=== PATIENT | female | born 1945 | race African-American/Black ===

== ENCOUNTER 2019-08-24 22:58 | Emergency (ER) | payer MEDICARE, OTHER ==
[~2019-08-24] VITALS: Ht 157.5 cm; Wt 79.0 kg
[~2019-08-24 22:58] MED LIST: CATAPRES; METF500T3; TOPXL5
[2019-08-24] MEDS ORDERED: KETOROLAC 60MG/2ML VIAL IM ONE (23:45)
[2019-08-25 02:44] LABS: CLARITY URINE CLEAR (CLEAR); COLOR URINE YELLOW (YELLOW); KETONES URINE TRACE (NEGATIVE); LEUKOCYTE ESTERASE URINE 1+ (NEGATIVE); NITRITE URINE NEGATIVE (NEGATIVE); OCCULT BLOOD URINE NEGATIVE (NEGATIVE); PROTEIN URINE 2+ (NEGATIVE); SPECIFIC GRAVITY URINE 1.012 (1.005-1.030); UROBILINOGEN URINE 0.2 E.U./dL (0.2-1.0)
[2019-08-25] MEDS ORDERED: LORAZEPAM 0.5MG TABLET PO ONE (03:15)
[2019-08-25 03:25] LABS: BASOPHILS % 1.2 % (0.0-2.0); EOSINOPHILS % 2.1 % (0.0-5.0); HEMATOCRIT. 40.3 % (36.0-48.0); HEMOGLOBIN. 13.8 g/dL (12.0-16.0); LYMPHOCYTES % 29.2 % (20.0-50.0); MEAN CORPUSCULAR HEMOGLOBIN 30.5 pg (28.0-32.0); MEAN CORPUSCULAR VOLUME 89.3 fL (81.0-99.0); MEAN PLATELET VOLUME 9.1 fl (7.4-10.4); MONOCYTES % 6.2 % (2.0-8.0); NEUTROPHILS % 61.3 % (40.0-76.0); PLATELET 225 x1000/uL (130-400); RED BLOOD CELL COUNT 4.52 mill/uL (4.2-5.4); RED CELL DISTRIBUTION WIDTH 13.8 % (11.6-14.6)
[2019-08-25 03:27] LABS: CHLORIDE 106 mEq/L (98-107)
[2019-08-25 03:59] VITALS: BP 137/71
== END 2019-08-25 06:27 | disposition home or self-care (01) ==
LOC: ER 22:58
DX: N30.00 Acute cystitis without hematuria (principal); R00.2 Palpitations; M54.5 Low back pain; I10 Essential (primary) hypertension
CPT/HCPCS: 36415; 80048; 81003; 82962; 85025; 99283; J1885

== ENCOUNTER 2019-09-14 07:01 | Inpatient (IN) | payer MEDICARE, OTHER ==
[~2019-09-14] VITALS: Ht 157.5 cm; Wt 77.1 kg
[2019-09-14] MEDS ORDERED: IPRATROPIUM BROMIDE (0.02%) 0.5MG/2.5ML NEB HHN STA (07:28)
[2019-09-14] MEDS: ALBUTEROL (0.083%) 2.5MG/3ML NEB HHN SCH ×3 (07:50→09:00)
[2019-09-14 08:01] LABS: BASOPHILS % 1.1 % (0.0-2.0); EOSINOPHILS % 2.7 % (0.0-5.0); HEMATOCRIT. 39.1 % (36.0-48.0); HEMOGLOBIN. 13.2 g/dL (12.0-16.0); LYMPHOCYTES % 19.5 % (20.0-50.0); MEAN CORPUSCULAR HEMOGLOBIN 30.1 pg (28.0-32.0); MEAN CORPUSCULAR VOLUME 89.4 fL (81.0-99.0); MONOCYTES % 5.4 % (2.0-8.0); NEUTROPHILS % 71.3 % (40.0-76.0); PLATELET 230 x1000/uL (130-400); RED BLOOD CELL COUNT 4.37 mill/uL (4.2-5.4); RED CELL DISTRIBUTION WIDTH 13.8 % (11.6-14.6)
[2019-09-14 08:06] LABS: CHLORIDE 107 mEq/L (98-107)
[2019-09-14] MEDS ORDERED: FUROSEMIDE 40MG/4ML VIAL IVP ONE (08:30)
[2019-09-14 10:40] LABS: *AMPHETAMINES SCREEN URINE NEGATIVE (NEGATIVE); *BARBITURATES SCREEN URINE NEGATIVE (NEGATIVE); *BENZODIAZEPINES SCREEN URINE NEGATIVE (NEGATIVE); *COCAINE SCREEN URINE NEGATIVE (NEGATIVE); METHADONE URINE SCREEN NEGATIVE (NEGATIVE); OPIATES URINE SCREEN NEGATIVE (NEGATIVE); PHENCYCLIDINE URINE SCREEN NEGATIVE (NEGATIVE)
[2019-09-14 10:41] LABS: CANNABINOID URINE SCREEN NEGATIVE (NEGATIVE)
[2019-09-14] MEDS ORDERED: FURO20TA4 MT (11:32)
[2019-09-14 11:42] VITALS: BP 140/69
[2019-09-14 12:00] VITALS: BP 140/69
[2019-09-14] MEDS ORDERED: CLONIDINE 0.1MG TABLET PO PRN (12:30)
[2019-09-14] MEDS ORDERED: MAGNESIUM/ALUMINUM HYDROXIDE/SIMETHICONE 30ML UDC PO PRN (12:30)
[2019-09-14] MEDS ORDERED: GUAIFENESIN 200MG/10ML SUGAR FREE UDC PO PRN (12:30)
[2019-09-14] MEDS ORDERED: ACETAMINOPHEN 325MG TABLET PO PRN (12:30)
[2019-09-14] MEDS ORDERED: DOCUSATE SODIUM 100MG CAPSULE PO PRN (12:30)
[2019-09-14] MEDS ORDERED: HYDROCODONE/ACETAMINOPHEN 10/325MG TABLET PO PRN (12:30)
[2019-09-14] MEDS ORDERED: IPRATROPIUM/ALBUTEROL 0.5-3(2.5)MG/3ML NEB HHN PRN (12:30)
[2019-09-14] MEDS ORDERED: DEXTROSE 50% WATER 50ML SYRINGE IV PRN (12:30)
[2019-09-14] MEDS ORDERED: ONDANSETRON HCL 4MG/2ML INJ IV PRN (12:30)
[2019-09-14] MEDS ORDERED: LORAZEPAM 2MG/ML CPJ IV PRN (12:30)
[2019-09-14] MEDS ORDERED: MORPHINE SULFATE 2 MG/ML CPJ (NOT FOR IM USE) IV PRN (12:30)
[2019-09-14] MEDS ORDERED: HYDRALAZINE 20MG/ML VIAL IV PRN (12:30)
[2019-09-14] MEDS ORDERED: DIPHENHYDRAMINE 50MG/ML VIAL IV PRN (12:30)
[2019-09-14] MEDS: INSULIN LISPRO 100 UNITS/ML SUBCUT SCH ×2 (12:39→17:49)
[2019-09-14] MEDS: BLOOD SUGAR DIAGNOSTIC STRIP TEST SCH ×2 (12:39→17:20)
[2019-09-14] MEDS ORDERED: ENOXAPARIN 40MG/0.4ML SYR SUBCUT SCH (13:00)
[2019-09-14] MEDS ORDERED: METOPROLOL TARTRATE 25MG TABLET PO SCH (13:00)
[2019-09-14] MEDS: APIXABAN 5 MG TABLET PO SCH ×2 (14:26→21:10)
[2019-09-14] MEDS: LOSARTAN POTASSIUM 25 MG TABLET PO SCH (14:26)
[2019-09-14] MEDS: FUROSEMIDE 40MG/4ML VIAL IVP SCH ×2 (14:28→17:49)
[2019-09-14] MEDS: CARVEDILOL 12.5MG TABLET PO SCH ×2 (14:28→21:10)
[2019-09-14] MEDS: SODIUM CHLORIDE 0.9% INJ 3ML FLUSH IVF SCH ×2 (14:28→21:10)
[2019-09-14 16:14] VITALS: BP 143/86
[2019-09-14 18:08] LABS: CREATINE KINASE MB FRACTION 2.5 ng/mL (0.5-3.6)
[2019-09-14 20:00] VITALS: BP 114/63
[2019-09-14 23:45] LABS: CREATINE KINASE MB FRACTION 3.1 ng/mL (0.5-3.6)
[2019-09-15] VITALS: BP 124/68
[2019-09-15 04:00] VITALS: BP 118/72
[2019-09-15] MEDS: SODIUM CHLORIDE 0.9% INJ 3ML FLUSH IVF SCH ×3 (06:37→21:30)
[2019-09-15 06:52] LABS: BASOPHILS % 2.7 % (0.0-2.0); EOSINOPHILS % 4.7 % (0.0-5.0); HEMATOCRIT. 41.6 % (36.0-48.0); LYMPHOCYTES % 33.7 % (20.0-50.0); MEAN CORPUSCULAR HEMOGLOBIN 29.9 pg (28.0-32.0); MEAN CORPUSCULAR VOLUME 88.9 fL (81.0-99.0); MEAN PLATELET VOLUME 9.2 fl (7.4-10.4); MONOCYTES % 6.7 % (2.0-8.0); NEUTROPHILS % 52.2 % (40.0-76.0); PLATELET 251 x1000/uL (130-400); RED BLOOD CELL COUNT 4.68 mill/uL (4.2-5.4); RED CELL DISTRIBUTION WIDTH 13.9 % (11.6-14.6)
[2019-09-15 07:03] LABS: CHLORIDE 103 mEq/L (98-107)
[2019-09-15 07:22] LABS: INR 1.1; PROTHROMBIN TIME 11.8 sec (9.6-11.0)
[2019-09-15 08:00] VITALS: BP 106/57
[2019-09-15] MEDS: FUROSEMIDE 40MG/4ML VIAL IVP SCH ×2 (08:41→16:55)
[2019-09-15] MEDS: CARVEDILOL 12.5MG TABLET PO SCH ×2 (08:41→21:30)
[2019-09-15] MEDS: METFORMIN HCL 500MG TABLET PO SCH ×2 (08:42→16:56)
[2019-09-15] MEDS: LOSARTAN POTASSIUM 25 MG TABLET PO SCH (08:42)
[2019-09-15] MEDS: APIXABAN 5 MG TABLET PO SCH ×2 (08:44→16:56)
[2019-09-15 12:00] VITALS: BP 134/90
[2019-09-15] MEDS ORDERED: DIGOXIN 500MCG/2ML AMP IV NR ×2 (13:45→16:45)
[2019-09-15 16:00] VITALS: BP 115/85
[2019-09-15] MEDS ORDERED: DIGOXIN 500MCG/2ML AMP IV SCH (18:00)
[2019-09-15 20:00] VITALS: BP 125/63
[2019-09-16] VITALS: BP 128/67
[2019-09-16 04:00] VITALS: BP 130/65
[2019-09-16] MEDS: SODIUM CHLORIDE 0.9% INJ 3ML FLUSH IVF SCH ×2 (05:29→13:50)
[2019-09-16 06:49] LABS: BASOPHILS % 1.9 % (0.0-2.0); HEMATOCRIT. 42.7 % (36.0-48.0); HEMOGLOBIN. 14.2 g/dL (12.0-16.0); LYMPHOCYTES % 32.2 % (20.0-50.0); MEAN CORPUSCULAR HEMOGLOBIN 29.7 pg (28.0-32.0); MEAN CORPUSCULAR VOLUME 89.2 fL (81.0-99.0); MEAN PLATELET VOLUME 9.3 fl (7.4-10.4); MONOCYTES % 9.3 % (2.0-8.0); NEUTROPHILS % 51.6 % (40.0-76.0); PLATELET 261 x1000/uL (130-400); RED BLOOD CELL COUNT 4.79 mill/uL (4.2-5.4)
[2019-09-16 06:52] LABS: CHLORIDE 101 mEq/L (98-107)
[2019-09-16 07:15] LABS: DIGOXIN 1.7 ng/mL (0.9-2.0)
[2019-09-16 08:00] VITALS: BP 103/63
[2019-09-16] MEDS: LOSARTAN POTASSIUM 25 MG TABLET PO SCH (08:46)
[2019-09-16] MEDS: CARVEDILOL 12.5MG TABLET PO SCH (08:46)
[2019-09-16] MEDS: APIXABAN 5 MG TABLET PO SCH (08:53)
[2019-09-16] MEDS: AMIODARONE HCL 200 MG TABLET PO SCH ×2 (08:53→13:50)
[2019-09-16] MEDS: METFORMIN HCL 500MG TABLET PO SCH (08:53)
[2019-09-16] MEDS: FUROSEMIDE 40MG/4ML VIAL IVP SCH (08:54)
[2019-09-16 12:00] VITALS: BP 99/72
[2019-09-16 14:44] VITALS: BP 99/72
== END 2019-09-16 15:35 | disposition home or self-care (01) | DRG 291 ==
LOC: ER 07:01 → 6WST 08:22 → EDBEDREQ 08:31 → ENRESERV 10:26
PROVIDERS: ADMIT Internal Medicine; ATTEND Internal Medicine
DX: I11.0 Hypertensive heart disease with heart failure (principal); J96.00 Acute respiratory failure, unspecified whether with hypoxia or hypercapnia; I48.92 Unspecified atrial flutter; I50.23 Acute on chronic systolic (congestive) heart failure; I42.9 Cardiomyopathy, unspecified; I27.20 Pulmonary hypertension, unspecified; I48.91 Unspecified atrial fibrillation; E11.9 Type 2 diabetes mellitus without complications; E66.9 Obesity, unspecified; I08.1 Rheumatic disorders of both mitral and tricuspid valves; Z60.2 Problems related to living alone; Z79.01 Long term (current) use of anticoagulants; Z68.31 Body mass index [BMI] 31.0-31.9, adult; Z90.710 Acquired absence of both cervix and uterus; Z71.89 Other specified counseling
CPT/HCPCS: 36415; 71045; 80048; 80053; 80162; 80305; 82550; 82553; 83880; 84484; 85025; 93005; 93970; 99291; J1160; J1940

== ENCOUNTER 2020-01-14 19:05 | Emergency (ER) | payer MEDICARE, OTHER ==
[~2020-01-14] VITALS: Ht 160 cm; Wt 73.0 kg
[~2020-01-14 19:05] MED LIST changes: -CATAPRES; -TOPXL5
[2020-01-14] MEDS ORDERED: FUROSEMIDE 40MG/4ML VIAL IV ONE (19:15)
[2020-01-14 19:41] LABS: HEMATOCRIT. 34.3 % (36.0-48.0); HEMOGLOBIN. 11.4 g/dL (12.0-16.0); MEAN CORPUSCULAR HEMOGLOBIN 29.2 pg (28.0-32.0); MEAN CORPUSCULAR VOLUME 87.9 fL (81.0-99.0); MEAN PLATELET VOLUME 8.9 fl (7.4-10.4); PLATELET 219 x1000/uL (130-400); RED CELL DISTRIBUTION WIDTH 16.1 % (11.6-14.6)
[2020-01-14 19:48] LABS: CHLORIDE 107 mEq/L (98-107)
[2020-01-14 20:14] LABS: PLATELET ESTIMATE NORMAL
[2020-01-15 03:30] VITALS: BP 125/80
== END 2020-01-15 05:32 | disposition home or self-care (01) ==
LOC: ER 19:05
DX: R60.9 Edema, unspecified (principal); I11.0 Hypertensive heart disease with heart failure; I50.9 Heart failure, unspecified
CPT/HCPCS: 36415; 71045; 80053; 83880; 84484; 85025; 93005; 93970; 96374; 99285; J1940

== ENCOUNTER 2020-01-20 08:48 | Inpatient (IN) | payer MEDICARE, OTHER ==
[~2020-01-20] VITALS: Ht 160 cm; Wt 70.3 kg
[2020-01-20] MEDS ORDERED: NITROGLYCERIN OINT 1GM/INCH UDPKT TD ONE (10:45)
[2020-01-20] MEDS ORDERED: FUROSEMIDE 40MG/4ML VIAL IV ONE (10:45)
[2020-01-20] MEDS ORDERED: ASPIRIN 81MG TABLET PO ONE (10:45)
[2020-01-20 10:50] LABS: BASOPHILS % 1.1 % (0.0-2.0); EOSINOPHILS % 1.1 % (0.0-5.0); LYMPHOCYTES % 14.2 % (20.0-50.0); MEAN CORPUSCULAR HEMOGLOBIN 29.6 pg (28.0-32.0); MEAN CORPUSCULAR VOLUME 88.5 fL (81.0-99.0); MEAN PLATELET VOLUME 8.9 fl (7.4-10.4); MONOCYTES % 6.4 % (2.0-8.0); NEUTROPHILS % 77.2 % (40.0-76.0); PLATELET 237 x1000/uL (130-400); RED BLOOD CELL COUNT 3.73 mill/uL (4.2-5.4); RED CELL DISTRIBUTION WIDTH 17.4 % (11.6-14.6)
[2020-01-20 10:57] LABS: INR 1.3; PARTIAL THROMBOPLASTIN TIME 30.5 sec (23.4-31.0); PROTHROMBIN TIME 13.1 sec (9.6-11.0)
[2020-01-20 11:15] LABS: CHLORIDE 107 mEq/L (98-107)
[2020-01-20 16:00] VITALS: BP 116/64
[2020-01-20] MEDS ORDERED: FURO20TA4 MT (17:07)
[2020-01-20] MEDS ORDERED: COR12 MT (17:07)
[2020-01-20] MEDS ORDERED: LOSA25TA26 MT (17:07)
[2020-01-20] MEDS ORDERED: MEGE40TA7 MT (17:07)
[2020-01-20] MEDS ORDERED: POTA8CAP20 PO (17:07)
[2020-01-20] MEDS ORDERED: APIX5TAB MT (17:07)
[2020-01-20] MEDS ORDERED: AMIO100T4 PO (17:10)
[2020-01-20 17:52] VITALS: BP 116/54
[2020-01-20] MEDS ORDERED: ACETAMINOPHEN 325MG TABLET PO PRN (18:15)
[2020-01-20] MEDS ORDERED: CLONIDINE 0.2MG TABLET PO PRN (18:15)
[2020-01-20] MEDS ORDERED: ZOLPIDEM TARTRATE 5MG TABLET PO PRN (18:15)
[2020-01-20] MEDS ORDERED: HYDROCODONE/ACETAMINOPHEN 5/325MG TABLET PO PRN (18:15)
[2020-01-20 20:00] VITALS: BP 122/59
[2020-01-20 20:35] LABS: EOSINOPHILS % 1.6 % (0.0-5.0); HEMATOCRIT. 32.4 % (36.0-48.0); HEMOGLOBIN. 10.7 g/dL (12.0-16.0); LYMPHOCYTES % 25.6 % (20.0-50.0); MEAN CORPUSCULAR HEMOGLOBIN 29.2 pg (28.0-32.0); MEAN CORPUSCULAR VOLUME 88.2 fL (81.0-99.0); MEAN PLATELET VOLUME 8.3 fl (7.4-10.4); MONOCYTES % 8.2 % (2.0-8.0); NEUTROPHILS % 62.6 % (40.0-76.0); PLATELET 225 x1000/uL (130-400); RED BLOOD CELL COUNT 3.67 mill/uL (4.2-5.4); RED CELL DISTRIBUTION WIDTH 17.4 % (11.6-14.6)
[2020-01-20 20:41] LABS: CHLORIDE 109 mEq/L (98-107)
[2020-01-20 20:50] LABS: CREATINE KINASE 125 IU/L (26-192)
[2020-01-20] MEDS: CARVEDILOL 12.5MG TABLET PO SCH (20:50)
[2020-01-20 20:52] LABS: CREATINE KINASE MB FRACTION < 1.0 ng/mL (0.5-3.6)
[2020-01-21] VITALS: BP 128/80
[2020-01-21 04:00] VITALS: BP 125/60
[2020-01-21] MEDS ORDERED: FUROSEMIDE 40MG/4ML VIAL IVP SCH (07:15)
[2020-01-21 07:36] LABS: CREATINE KINASE 123 IU/L (26-192)
[2020-01-21 07:43] LABS: CREATINE KINASE MB FRACTION < 1.0 ng/mL (0.5-3.6)
[2020-01-21 08:00] VITALS: BP 149/83
[2020-01-21 09:11] LABS: T4 FREE 1.56 ng/dL (0.76-1.46)
[2020-01-21] MEDS: APIXABAN 5 MG TABLET PO SCH ×2 (09:44→16:41)
[2020-01-21] MEDS: CARVEDILOL 12.5MG TABLET PO SCH ×2 (09:44→21:19)
[2020-01-21] MEDS: MEGESTROL ACETATE 40MG TABLET PO SCH ×2 (09:44→16:41)
[2020-01-21] MEDS: LOSARTAN POTASSIUM 25 MG TABLET PO SCH (09:44)
[2020-01-21] MEDS: AMIODARONE HCL 200 MG TABLET PO SCH (09:44)
[2020-01-21 12:00] VITALS: BP 121/54
[2020-01-21 16:49] LABS: CREATINE KINASE 119 IU/L (26-192)
[2020-01-21 16:50] LABS: CREATINE KINASE MB FRACTION < 1.0 ng/mL (0.5-3.6)
[2020-01-21 20:00] VITALS: BP 152/77
[2020-01-22 00:23] LABS: CREATINE KINASE 117 IU/L (26-192)
[2020-01-22 00:24] LABS: CREATINE KINASE MB FRACTION < 1.0 ng/mL (0.5-3.6)
[2020-01-22 00:27] VITALS: BP 128/56
[2020-01-22 04:29] VITALS: BP 152/80
[2020-01-22 07:24] LABS: BASOPHILS % 3.2 % (0.0-2.0); HEMATOCRIT. 36.5 % (36.0-48.0); LYMPHOCYTES % 22.2 % (20.0-50.0); MEAN CORPUSCULAR HEMOGLOBIN 29.4 pg (28.0-32.0); MEAN CORPUSCULAR VOLUME 89.4 fL (81.0-99.0); MEAN PLATELET VOLUME 8.6 fl (7.4-10.4); MONOCYTES % 7.7 % (2.0-8.0); NEUTROPHILS % 63.9 % (40.0-76.0); PLATELET 276 x1000/uL (130-400); RED BLOOD CELL COUNT 4.08 mill/uL (4.2-5.4); RED CELL DISTRIBUTION WIDTH 17.4 % (11.6-14.6)
[2020-01-22 07:41] LABS: CHLORIDE 105 mEq/L (98-107)
[2020-01-22 07:57] LABS: CREATINE KINASE 130 IU/L (26-192); CREATINE KINASE MB FRACTION < 1.0 ng/mL (0.5-3.6)
[2020-01-22 08:15] VITALS: BP 139/70
[2020-01-22] MEDS: FUROSEMIDE 40MG/4ML VIAL IVP SCH (08:34)
[2020-01-22] MEDS: APIXABAN 5 MG TABLET PO SCH ×2 (08:34→16:58)
[2020-01-22] MEDS: LOSARTAN POTASSIUM 25 MG TABLET PO SCH (08:35)
[2020-01-22] MEDS: AMIODARONE HCL 200 MG TABLET PO SCH (08:35)
[2020-01-22] MEDS: CARVEDILOL 12.5MG TABLET PO SCH ×2 (08:35→20:42)
[2020-01-22] MEDS: MEGESTROL ACETATE 40MG TABLET PO SCH ×2 (08:35→16:58)
[2020-01-22 12:30] VITALS: BP 137/51
[2020-01-22 15:47] VITALS: BP 124/61
[2020-01-22 18:00] LABS: CLARITY URINE CLOUDY (CLEAR); COLOR URINE YELLOW (YELLOW); KETONES URINE NEGATIVE (NEGATIVE); LEUKOCYTE ESTERASE URINE NEGATIVE (NEGATIVE); NITRITE URINE NEGATIVE (NEGATIVE); OCCULT BLOOD URINE NEGATIVE (NEGATIVE); PH URINE 7.5 (4.5-8.0); PROTEIN URINE TRACE (NEGATIVE); SPECIFIC GRAVITY URINE 1.013 (1.005-1.030); UROBILINOGEN URINE 0.2 E.U./dL (0.2-1.0)
[2020-01-22 20:00] VITALS: BP 99/46
[2020-01-23] VITALS: BP 123/54
[2020-01-23 04:00] VITALS: BP 142/66
[2020-01-23 07:30] LABS: BASOPHILS % 1.8 % (0.0-2.0); EOSINOPHILS % 2.3 % (0.0-5.0); HEMATOCRIT. 33.2 % (36.0-48.0); HEMOGLOBIN. 11.1 g/dL (12.0-16.0); LYMPHOCYTES % 26.6 % (20.0-50.0); MEAN CORPUSCULAR HEMOGLOBIN 29.5 pg (28.0-32.0); MEAN CORPUSCULAR VOLUME 88.4 fL (81.0-99.0); MEAN PLATELET VOLUME 8.4 fl (7.4-10.4); MONOCYTES % 11.5 % (2.0-8.0); NEUTROPHILS % 57.8 % (40.0-76.0); PLATELET 248 x1000/uL (130-400); RED BLOOD CELL COUNT 3.75 mill/uL (4.2-5.4); RED CELL DISTRIBUTION WIDTH 17.1 % (11.6-14.6)
[2020-01-23 08:00] VITALS: BP 154/90
[2020-01-23] MEDS: FUROSEMIDE 40MG/4ML VIAL IVP SCH (09:00)
[2020-01-23] MEDS: AMIODARONE HCL 200 MG TABLET PO SCH (09:00)
[2020-01-23] MEDS: MEGESTROL ACETATE 40MG TABLET PO SCH ×2 (09:08→16:22)
[2020-01-23] MEDS: LOSARTAN POTASSIUM 25 MG TABLET PO SCH (09:08)
[2020-01-23] MEDS: APIXABAN 5 MG TABLET PO SCH ×2 (09:08→16:22)
[2020-01-23] MEDS: CARVEDILOL 12.5MG TABLET PO SCH ×2 (09:09→20:46)
[2020-01-23] MEDS: POTASSIUM CHLORIDE 20MEQ TABLET SR PO NR ×2 (11:10→11:31)
[2020-01-23 12:00] VITALS: BP 123/65
[2020-01-23 16:00] VITALS: BP 108/43
[2020-01-23 20:00] VITALS: BP 132/64
[2020-01-24] VITALS: BP 135/54
[2020-01-24 04:00] VITALS: BP 124/62
[2020-01-24 08:00] VITALS: BP 155/77
[2020-01-24] MEDS: AMIODARONE HCL 200 MG TABLET PO SCH (08:46)
[2020-01-24] MEDS: APIXABAN 5 MG TABLET PO SCH (08:46)
[2020-01-24] MEDS: LOSARTAN POTASSIUM 25 MG TABLET PO SCH (08:46)
[2020-01-24] MEDS: CARVEDILOL 12.5MG TABLET PO SCH (08:46)
[2020-01-24] MEDS: MEGESTROL ACETATE 40MG TABLET PO SCH (08:46)
[2020-01-24] MEDS: FUROSEMIDE 40MG/4ML VIAL IVP SCH (09:38)
[2020-01-24 10:59] VITALS: BP 155/77
[2020-01-24 12:00] VITALS: BP 136/67
== END 2020-01-24 12:50 | disposition home or self-care (01) | DRG 291 ==
LOC: ER 09:13 → 8WST 14:05 → EDBEDREQ 14:09 → ENRESERV 14:19 → ER 15:30
PROVIDERS: ADMIT Internal Medicine; ATTEND Internal Medicine
DX: I11.0 Hypertensive heart disease with heart failure (principal); N17.0 Acute kidney failure with tubular necrosis; J96.01 Acute respiratory failure with hypoxia; J98.11 Atelectasis; I48.92 Unspecified atrial flutter; I50.23 Acute on chronic systolic (congestive) heart failure; E78.5 Hyperlipidemia, unspecified; R00.1 Bradycardia, unspecified; E11.9 Type 2 diabetes mellitus without complications; D64.9 Anemia, unspecified; I27.20 Pulmonary hypertension, unspecified; I08.1 Rheumatic disorders of both mitral and tricuspid valves; I95.9 Hypotension, unspecified; I48.91 Unspecified atrial fibrillation; Z79.01 Long term (current) use of anticoagulants; Z79.84 Long term (current) use of oral hypoglycemic drugs; Z79.899 Other long term (current) drug therapy
CPT/HCPCS: 36415; 71045; 80048; 80053; 80061; 81003; 82550; 82553; 83036; 83880; 84439; 84443; 84484; 85025; 85379; 93005; 93306; 93970; 99285; J1940